=== PATIENT | male | born 1995 | race Two or more races ===

== ENCOUNTER 2021-07-05 16:22 | Emergency (ER) | payer MEDICARE, MEDICAID ==
[~2021-07-05] VITALS: Ht 188 cm; Wt 95.3 kg
[2021-07-05 21:14] VITALS: BP 129/77
== END 2021-07-06 04:02 | disposition home or self-care (01) ==
LOC: ER 16:22
DX: S93.601A Unspecified sprain of right foot, initial encounter (principal); X58.XXXA Exposure to other specified factors, initial encounter; Y93.89 Activity, other specified; Y92.89 Other specified places as the place of occurrence of the external cause; Y99.8 Other external cause status
CPT/HCPCS: 73630